=== PATIENT | female | born 1985 | race Caucasian/White ===

== ENCOUNTER 2016-12-27 08:46 | Emergency (ER) | payer MEDICAID ==
[~2016-12-27] VITALS: Ht 152.4 cm; Wt 51.7 kg
[2016-12-27 10:04] LABS: microscopic required? NO
[2016-12-27 10:20] LABS: CALCIUM 9.2 mg/dL (8.5-10.1); CHLORIDE SERUM 98 mmol/L (98-107); CREATININE SERUM 0.6 mg/dL (0.6-1.0); GFR1 > 60 mL/min; GLUCOSE SERUM 95 mg/dL (74-106); POTASSIUM SERUM 3.9 mmol/L (3.5-5.1); SODIUM SERUM 128 mmol/L (136-145)
[2016-12-27 10:23] LABS: BASOPHIL % 1.1 % (0-2); PLATELET COUNT 200 x10^3mcL (130-400); RED CELL DISTRIBUTION WIDTH 12.5 % (11.5-14.5)
[2016-12-27 10:26] LABS: ALBUMIN 4.2 g/dL (3.4-5.0); ALKALINE PHOSPHATASE 51 U/L (46-116); ALT/SGPT 11 U/L (14-59); AST/SGOT 12 U/L (15-37); BILIRUBIN TOTAL 0.53 mg/dL (0.20-1.00); TOTAL PROTEIN, SERUM 8.2 g/dL (6.4-8.2)
[2016-12-27 10:52] LABS: UA SPECIFIC GRAVITY 1.015 (1.005-1.035); urine erythrocyte NEGATIVE (NEGATIVE)
[2016-12-27 12:15] VITALS: BP 103/56
== END 2016-12-27 12:15 | disposition home or self-care (01) ==
LOC: ED 08:46
PROVIDERS: Emergency Medicine
DX: O21.0 Mild hyperemesis gravidarum (principal); Z3A.13 13 weeks gestation of pregnancy
CPT/HCPCS: J2405; J3490; J7030